=== PATIENT | female | born 1970 | race Caucasian/White ===

== ENCOUNTER 2018-07-01 07:11 | Emergency (ER) | payer OTHER ==
[2018-07-01 08:22] LABS: BASO # 0.1 10^3/uL (0.0-0.2); EOS # 0.3 10^3/uL (0.0-0.50); EOS % 4.1 % (0.0-3.0); HEMATOCRIT 38.6 % (36.0-47.0); HEMOGLOBIN 13.1 g/dl (12.0-15.5); IMMATURE GRANULOCYTE % 0.5 % (0-3.0); LYMPH # 1.5 10^3/uL (1.5-4.5); LYMPH % 24.8 % (24.0-44.0); MEAN CORPUSCULAR HEMOGLOBIN 29.6 pg (27.0-33.0); MEAN CORPUSCULAR HGB CONC 33.9 g/dl (32.0-36.5); MEAN CORPUSCULAR VOLUME 87.3 fl (80.0-96.0); MONO # 0.3 10^3/uL (0.0-0.8); MONO % 4.8 % (0.0-5.0); NEUTROPHILS # 3.9 10^3/uL (1.8-7.7); NEUTROPHILS % 64.8 % (36.0-66.0); PLATELET COUNT, AUTOMATED 231 10^3/uL (150-450); RED BLOOD COUNT 4.42 10^6/uL (4.00-5.40); RED CELL DISTRIBUTION WIDTH 12.2 % (11.5-14.5); WHITE BLOOD COUNT 6.1 10^3/uL (4.0-10.0)
[2018-07-01 08:25] LABS: ANION GAP 8 MEQ/L (8-16); BLOOD UREA NITROGEN 16 MG/DL (7-18); CALCIUM LEVEL 8.5 MG/DL (8.5-10.1); CARBON DIOXIDE LEVEL 26 MEQ/L (21-32); CHLORIDE LEVEL 107 MEQ/L (98-107); CPK CREATINE PHOSPHOKINASE 53 U/L (26-192); CREATININE FOR GFR 0.85 MG/DL (0.55-1.30); GLOMERULAR FILTRATION RATE > 60.0 (>58); GLUCOSE, FASTING 111 MG/DL (70-100); POTASSIUM SERUM 3.8 MEQ/L (3.5-5.1); SODIUM LEVEL 141 MEQ/L (136-145); TROPONIN I < 0.02 NG/ML (< 0.10)
[2018-07-01 08:27] LABS: ETHYL ALCOHOL (ETHANOL) < 0.003 % (0.000-0.010); INR 0.95; PROTHROMBIN TIME 12.8 SECONDS (12.1-14.4)
[2018-07-01 08:28] LABS: PARTIAL THROMBOPLASTIN TIME 23.1 SECONDS (25.4-37.6)
[2018-07-01 08:30] LABS: CK-MB VALUE MASS < 1.0 NG/ML (<3.6); MB/CK RELATIVE INDEX 1.88 (< OR =4)
[2018-07-01 08:31] LABS: D-DIMER QUANT < 270.0 ng/ml (<500)
[2018-07-01 09:27] LABS: AMORPHOUS SEDIMENT RFX SMALL (NEGATIVE); KETONE, URINE AUTO RFX NEGATIVE (NEGATIVE); LEUKOCYTE ESTERASE UR AUTO RFX NEGATIVE (NEGATIVE); NITRITE, URINE AUTO RFX NEGATIVE (NEGATIVE); RBC, URINE AUTO RFX 1 /HPF (0-3); SPECIFIC GRAVITY UR AUTO RFX 1.017 (1.002-1.035); SQUAM EPITHELIAL CELL UR AURFX 4 /HPF (0-6); WBC, URINE AUTO RFX 2 /HPF (0-3)
[2018-07-01 09:34] LABS: AMPHETAMINES LEVEL URINE NEGATIVE (NEGATIVE); BARBITURATES URINE NEGATIVE (NEGATIVE); BENZODIAZEPINES URINE NEGATIVE (NEGATIVE); CANNABINOIDS URINE NEGATIVE (NEGATIVE); COCAINE METABOLITE URINE NEGATIVE (NEGATIVE); METHADONE URINE NEGATIVE (NEGATIVE); OPIATES URINE NEGATIVE (NEGATIVE); PHENCYCLIDINE URINE NEGATIVE (NEGATIVE)
[2018-07-01] MEDS: MECLIZINE 25 MG TABLET PO (09:57)
== END 2018-07-01 15:46 | disposition home or self-care (01) ==
LOC: M ED 07:11
DX: R55 Syncope and collapse (principal); I45.10 Unspecified right bundle-branch block
CPT/HCPCS: 70551

== ENCOUNTER 2020-04-15 17:31 | Emergency (ER) | payer OTHER ==
[~2020-04-15] VITALS: Ht 160 cm; Wt 84.2 kg
[~2020-04-15 17:31] MED LIST: MECL1TAB31 PO
[2020-04-15 18:34] VITALS: BP 167/98
--- NOTE | 2020-04-15 19:03 | REPVR ---
PROCEDURE INFORMATION: Exam: US Left Non-Vascular Joint or Other Extremity Structure, Limited Exam date and time: 04/15/2020 6:19 PM Age: 49 years old Clinical indication: Swelling; Lower leg; Left; Additional info: Anterior bump to left anterior perales TECHNIQUE: Imaging protocol: Left US Non-Vascular Joint or Other Extremity Structure. Limited exam COMPARISON: No relevant prior studies available. FINDINGS: Soft tissues: At the site of the palpable abnormality at the anterior aspect of the lower leg, there is a serpiginous hypoechoic structure in the subcutaneous fat which shows no internal color flow but, but appears to have adjacent contiguous vessels. This appears to represent a segmental at least partially thrombosed superficial varix. No definite fluid collection is identified. IMPRESSION: At the site of the palpable abnormality, there appears to be a tortuous superficial varix which is at least partially segmentally thrombosed. Suggest follow-up lower extremity venous ultrasound of the patient's symptoms persist or worsen. Electronically signed by: Nadege Pineda On 04/15/2020 19:02:47 PM
== END 2020-04-15 18:45 | disposition home or self-care (01) ==
LOC: M ED 17:31
DX: I80.02 Phlebitis and thrombophlebitis of superficial vessels of left lower extremity (principal); G43.909 Migraine, unspecified, not intractable, without status migrainosus

== ENCOUNTER 2023-07-10 19:22 | Inpatient (IN) | payer OTHER ==
[~2023-07-10] VITALS: Ht 160 cm; Wt 86.1 kg
[~2023-07-10 19:22] MED LIST changes: +MECL-209 PO; -MECL1TAB31 PO
[2023-07-10] MEDS ORDERED: NITROGLYCERIN 0.4MG SUBL TABLET SL PRN (19:45)
[2023-07-10] MEDS ORDERED: ASPIRIN 81MG CHEW TABLET PO ONE (20:00)
[2023-07-10 20:14] LABS: BASO # 0.1 10^3/uL (0.0-0.2); BASO % 1.3 % (0.0-1.0); EOS # 0.2 10^3/uL (0.0-0.5); EOS % 2.8 % (0.0-3.0); HEMATOCRIT 40.1 % (36.0-47.0); HEMOGLOBIN 13.4 g/dl (12.0-15.5); LYMPH # 2.5 10^3/uL (1.5-5.0); LYMPH % 35.6 % (24.0-44.0); MEAN CORPUSCULAR HGB CONC 33.4 g/dl (32.0-36.5); MEAN CORPUSCULAR VOLUME 86.8 fl (80.0-96.0); MONO # 0.7 10^3/uL (0.0-0.8); MONO % 9.5 % (2.0-8.0); NEUTROPHILS # 3.6 10^3/uL (1.5-8.5); NEUTROPHILS % 50.5 % (36.0-66.0); PLATELET COUNT, AUTOMATED 246 10^3/uL (150-450); RED BLOOD COUNT 4.62 10^6/uL (4.00-5.40); WHITE BLOOD COUNT 7.1 10^3/uL (4.0-10.0)
[2023-07-10 20:29] LABS: LIPASE 50 U/L (12-53)
[2023-07-10 20:31] LABS: ALBUMIN 4.1 G/DL (3.2-5.2); ALKALINE PHOSPHATASE 217 U/L (46-116); ALT/SGPT 740 U/L (7.0-40); AST/SGOT 616 U/L (<34); BILIRUBIN,DIRECT 0.6 MG/DL (<0.4); BLOOD UREA NITROGEN 17 MG/DL (9-23); CALCIUM LEVEL 9.3 MG/DL (8.5-10.1); CARBON DIOXIDE LEVEL 28 MMOL/L (20-31); CHLORIDE LEVEL 105 MMOL/L (98-107); CK-MB VALUE MASS < 1.0 NG/ML (<3.6); CPK CREATINE PHOSPHOKINASE 98 U/L (34-145); CREATININE FOR GFR 0.87 MG/DL (0.55-1.30); GLOMERULAR FILTRATION RATE > 60.0 (>51); GLUCOSE, FASTING 108 MG/DL (60-100); MB/CK RELATIVE INDEX 1.02 (< OR =4); POTASSIUM SERUM 3.6 MMOL/L (3.5-5.1); SODIUM LEVEL 143 MMOL/L (136-145); TOTAL PROTEIN 7.1 G/DL (5.7-8.2)
[2023-07-10 20:37] LABS: INR 0.97; PROTHROMBIN TIME 12.6 SECONDS (12.5-14.5)
[2023-07-10] MEDS ORDERED: ISOVUE-370 76% 100ML VIAL As Ordered ONE (20:37)
[2023-07-10 22:05] LABS: CK-MB VALUE MASS < 1.0 NG/ML (<3.6)
[2023-07-10 22:07] LABS: CPK CREATINE PHOSPHOKINASE 84 U/L (34-145); MB/CK RELATIVE INDEX 1.19 (< OR =4)
[2023-07-10] MEDS ORDERED: TOPI25TA10 PO (22:31)
[2023-07-10] MEDS ORDERED: D 101000 PO (22:31)
[2023-07-10] MEDS ORDERED: LISI10TA22 PO (22:31)
[2023-07-10] MEDS ORDERED: HOME MED LIST COMPLETE! XX SCH (22:35)
[2023-07-10 23:22] LABS: RSV AMPLIFICATION NEGATIVE (NEGATIVE)
[2023-07-11] MEDS ORDERED: ACETAMINOPHEN TAB 650MG DOSE (2X325MG) PO PRN (00:35)
[2023-07-11] MEDS ORDERED: hydrALAZINE 20MG/ML 1ML VIAL IV PRN (02:00)
[2023-07-11 02:20] VITALS: BP 160/90; TEMP 97.4; O2SAT 99
[2023-07-11 03:39] LABS: HEPATITIS B CORE ANTIBODY IGM NEGATIVE (NEGATIVE)
[2023-07-11 03:40] LABS: HEPATITIS C VIRUS ABY INDEX 0.12 INDEX (<0.8)
[2023-07-11 03:44] VITALS: BP 140/78; TEMP 97; O2SAT 96
[2023-07-11 08:34] VITALS: BP 167/91; TEMP 97; O2SAT 97
[2023-07-11] MEDS ORDERED: ENOXAPARIN 40MG/0.4ML SYRINGE (J1650 PER 10MG) SC SCH (09:00)
[2023-07-11 09:12] LABS: BASO # 0.1 10^3/uL (0.0-0.2); BASO % 1.9 % (0.0-1.0); EOS # 0.3 10^3/uL (0.0-0.5); EOS % 5.5 % (0.0-3.0); HEMATOCRIT 42.8 % (36.0-47.0); HEMOGLOBIN 14.1 g/dl (12.0-15.5); LYMPH # 1.6 10^3/uL (1.5-5.0); LYMPH % 29.9 % (24.0-44.0); MEAN CORPUSCULAR HEMOGLOBIN 29.3 pg (27.0-33.0); MEAN CORPUSCULAR HGB CONC 32.9 g/dl (32.0-36.5); MEAN CORPUSCULAR VOLUME 88.8 fl (80.0-96.0); MONO # 0.3 10^3/uL (0.0-0.8); MONO % 6.1 % (2.0-8.0); NEUTROPHILS % 56.2 % (36.0-66.0); PLATELET COUNT, AUTOMATED 256 10^3/uL (150-450); RED BLOOD COUNT 4.82 10^6/uL (4.00-5.40); WHITE BLOOD COUNT 5.3 10^3/uL (4.0-10.0)
[2023-07-11 09:24] LABS: ACETAMINOPHEN LEVEL < 2.0 UG/ML (10.0-20.0)
[2023-07-11 09:27] LABS: TOTAL 25(OH) VITAMIN D 33.4 NG/ML (20.0-100.0)
[2023-07-11 10:06] VITALS: BP 143/84
[2023-07-11 10:27] LABS: ALBUMIN 4.1 G/DL (3.2-5.2); ALKALINE PHOSPHATASE 199 U/L (46-116); ALT/SGPT 821 U/L (7.0-40); AST/SGOT 447 U/L (<34); BILIRUBIN,TOTAL 0.9 MG/DL (0.3-1.2); BLOOD UREA NITROGEN 13 MG/DL (9-23); CALCIUM LEVEL 9.6 MG/DL (8.5-10.1); CARBON DIOXIDE LEVEL 24 MMOL/L (20-31); CHLORIDE LEVEL 106 MMOL/L (98-107); CREATININE FOR GFR 0.75 MG/DL (0.55-1.30); GLOMERULAR FILTRATION RATE > 60.0 (>51); GLUCOSE, FASTING 163 MG/DL (60-100); POTASSIUM SERUM 3.6 MMOL/L (3.5-5.1); SODIUM LEVEL 141 MMOL/L (136-145)
[2023-07-11 10:53] LABS: FERRITIN 461.6 NG/ML (7.3-270.7); FREE T4 1.11 NG/DL (0.89-1.76); THYROID STIMULATING HORMONE 1.357 uIU/ML (0.55-4.78)
[2023-07-11 11:00] LABS: MAGNESIUM LEVEL 1.6 MG/DL (1.8-2.4)
[2023-07-11 11:56] LABS: LDH LACTATE DEHYDROGENASE 436 U/L (120-246)
[2023-07-11] MEDS: MAG SULF 1GM/100ML (MAG RUN) 1 GM in IV 1 EA IV SCH ×2 (12:22→13:51)
[2023-07-11] MEDS ORDERED: LISI20TA33 PO (12:25)
[2023-07-11] MEDS ORDERED: AMLO1TAB25 PO (14:07)
[2023-07-11] MEDS ORDERED: amLODIPine 5 MG TAB PO ONE (14:10)
[2023-07-11 14:41] VITALS: BP 141/83
== END 2023-07-11 15:37 | disposition home or self-care (01) | DRG 305 ==
LOC: M ED 19:22 → M ED INP 23:55 → ENRESERV 07-11 01:04 → M PCU 07-11 02:19
PROVIDERS: ADMIT Family Medicine; ATTEND Internal Medicine
DX: I16.0 Hypertensive urgency (principal); I10 Essential (primary) hypertension; R74.01 Elevation of levels of liver transaminase levels; R07.89 Other chest pain; K76.0 Fatty (change of) liver, not elsewhere classified; G43.909 Migraine, unspecified, not intractable, without status migrainosus; E55.9 Vitamin D deficiency, unspecified; Z79.899 Other long term (current) drug therapy